=== PATIENT | female | born 1955 | race Hispanic/Latino ===

== ENCOUNTER 2017-04-08 07:56 | Day surgery (SDC) | payer BC ==
[~2017-04-08] VITALS: Ht 154.9 cm; Wt 81.5 kg
[~2017-04-08 07:56] MED LIST: CHOL100046 PO; LOSA50TA37 PO; LOVA40TA2 PO; SODIUM CHLORIDE 0.9% 1000ML 1,000 ML IV ONE
[2017-04-08 08:06] VITALS: BP 143/66
[2017-04-08] MEDS ORDERED: MEPERIDINE-PF 50 MG/ML SYG ONE (09:29)
[2017-04-08] MEDS ORDERED: MIDAZOLAM HCL 1 MG/ML 2ML VIAL ONE (09:29)
== END 2017-04-08 10:50 | disposition home or self-care (01) ==
LOC: DAH 07:56 → ENDO 07:56
PROVIDERS: ATTEND Internal Medicine Gastroenterology
DX: Z12.11 Encounter for screening for malignant neoplasm of colon (principal); K21.9 Gastro-esophageal reflux disease without esophagitis; E78.5 Hyperlipidemia, unspecified; K57.30 Diverticulosis of large intestine without perforation or abscess without bleeding; I10 Essential (primary) hypertension; Z80.0 Family history of malignant neoplasm of digestive organs; Z90.710 Acquired absence of both cervix and uterus; Z98.890 Other specified postprocedural states; Z82.49 Family history of ischemic heart disease and other diseases of the circulatory system; Z83.3 Family history of diabetes mellitus
CPT/HCPCS: 45378; 99156; 99157; A4606; J2175; J2250; J7030

== ENCOUNTER 2021-11-14 06:27 | Day surgery (SDC) | payer OTHER ==
[2021-11-11 15:32] LABS: BASOPHILS % (AUTO) 0.6 % (0.0-5.0); EOSINOPHILS % (AUTO) 2.7 % (0.0-8.0); HEMATOCRIT 40.8 % (36-48); LYMPHOCYTES % (AUTO) 24.8 % (21.0-51.0); MEAN CORPUSCULAR HEMOGLOBIN 30.2 pg (27.0-33.0); MEAN CORPUSCULAR HGB CONC 33.6 g/dL (32.0-36.0); MEAN CORPUSCULAR VOLUME 90.1 fL (79-99); MONOCYTES % (AUTO) 8.5 % (3.0-13.0); NEUTROPHILS % (AUTO) 63.2 % (40.0-77.0); PLATELET COUNT (AUTO) 234 K/uL (130-400); RED BLOOD CELL COUNT(AUTO) 4.53 MIL/uL (4.00-5.50); RED CELL DISTRIBUTION WIDTH 12.9 % (11.0-15.5); WHITE BLOOD COUNT (AUTO) 6.6 K/uL (4.8-10.8)
[2021-11-11 15:43] LABS: INR 0.98 (0.85-1.15); PROTHROMBIN TIME 10.7 SEC (9.6-11.6)
[2021-11-11 15:44] LABS: PARTIAL THROMBOPLASTIN TIME 25.9 SEC (26.3-35.5)
[2021-11-11 15:47] LABS: ALBUMIN 3.7 g/dL (3.5-5.0); CREATININE 0.9 mg/dL (0.5-1.5); TOTAL PROTEIN, SERUM 7.8 g/dL (6.0-8.3)
[2021-11-13 09:58] VITALS: BP 153/71
[2021-11-14] VITALS (18 sets, daily range): BP systolic 124–156; BP diastolic 61–76
[~2021-11-14] VITALS: Ht 152.4 cm; Wt 78.7 kg
[2021-11-14] MEDS: CEFAZOLIN SODIUM 1 GM VIAL IVP SCH ×2 (06:00→07:16)
[~2021-11-14 06:27] MED LIST changes: +HYDR25TA PO; +LACTATED RINGERS 1000ML 1,000 ML IV ONE; -LOSA50TA37 PO; -SODIUM CHLORIDE 0.9% 1000ML 1,000 ML IV ONE; +VALS160T29 PO
[2021-11-14] MEDS ORDERED: DEXAMETHASONE SOD PHOSPHATE 4 MG/ML 1ML VIAL ONE (07:10)
[2021-11-14] MEDS ORDERED: GLYCOPYRROLATE 1 MG/5 ML SYRINGE ONE ×2 (07:11→09:05)
[2021-11-14] MEDS ORDERED: PHENYLEPHRINE HCL 10 MG/ML 1ML VIAL IV ONE (07:11)
[2021-11-14] MEDS ORDERED: ONDANSETRON 4MG INJ ONE ×2 (07:11→08:58)
[2021-11-14] MEDS ORDERED: MIDAZOLAM HCL 1 MG/ML 2ML VIAL ONE (07:11)
[2021-11-14] MEDS ORDERED: NEOSTIGMINE 5MG/5ML SYR IV ONE (07:12)
[2021-11-14] MEDS ORDERED: ROCURONIUM 10MG/1ML SYR 10 MG/ML ML ONE (07:12)
[2021-11-14] MEDS ORDERED: FENTANYL CITRATE PF 50 MCG/1 ML 2ML VIAL ONE (07:12)
[2021-11-14] MEDS ORDERED: PROPOFOL 10 MG/ML 20ML VIAL IV ONE (07:12)
[2021-11-14] MEDS ORDERED: LIDOCAINE PF 100MG/5ML (2%) SYRINGE 5ML ONE (07:13)
[2021-11-14] MEDS ORDERED: LEVO-70 PO (07:40)
[2021-11-14] MEDS ORDERED: BUPIVACAINE/PF 0.25% 30ML VIAL IJ ONE (07:43)
[2021-11-14] MEDS ORDERED: IBUP-2697 PO (08:41)
[2021-11-14] MEDS ORDERED: ACET325C6 PO (08:41)
[2021-11-14] MEDS ORDERED: KETOROLAC 15MG/ML VIAL (15MG/ML) ONE (08:58)
[2021-11-14] MEDS ORDERED: MEPERIDINE-PF 25 MG/ML SYG ONE (08:59)
== END 2021-11-14 10:30 | disposition home or self-care (01) ==
LOC: DAH 06:27
PROVIDERS: ATTEND Surgery
DX: K42.9 Umbilical hernia without obstruction or gangrene (principal); L72.0 Epidermal cyst; L03.90 Cellulitis, unspecified; I10 Essential (primary) hypertension; E78.5 Hyperlipidemia, unspecified; E66.9 Obesity, unspecified; E78.00 Pure hypercholesterolemia, unspecified; Z98.890 Other specified postprocedural states; Z80.0 Family history of malignant neoplasm of digestive organs; Z82.49 Family history of ischemic heart disease and other diseases of the circulatory system; Z83.3 Family history of diabetes mellitus; Z90.710 Acquired absence of both cervix and uterus; Z68.34 Body mass index [BMI] 34.0-34.9, adult; Z79.01 Long term (current) use of anticoagulants
CPT/HCPCS: 80053; 85025; 85610; 85730; 87426; 36415; 11401; 49585; J1100; J7030; J7120; J3010; J0690; J3490 ×3; J2710; J2001; J2250; J2704; J2405 ×2; J1885; J2370; G0168; A4930; A4215; A4223; A4222; A4221; A4663; J2175

== ENCOUNTER → 2022-03-05 | Outpatient (CLI) | payer OTHER ==
[~2022-03-05] MED LIST changes: +ACET325C6 PO; +IBUP-2697 PO; -LACTATED RINGERS 1000ML 1,000 ML IV ONE; +LEVO-70 PO
== END | disposition home or self-care (01) ==
LOC: RAH 14:43
PROVIDERS: ATTEND Family Medicine
DX: M79.672 Pain in left foot (principal)
CPT/HCPCS: 73630

== ENCOUNTER → 2022-08-19 | Outpatient (CLI) | payer OTHER | END | disposition home or self-care (01) | LOC: SHCH 11:09 | PROVIDERS: ATTEND Internal Medicine Cardiovascular Disease | DX: R00.2 Palpitations (principal) | CPT/HCPCS: 93306 ==

== ENCOUNTER → 2022-08-25 | Outpatient (CLI) | payer OTHER | END | disposition home or self-care (01) | LOC: RAH 08:22 | PROVIDERS: ATTEND Internal Medicine Cardiovascular Disease | DX: Z13.6 Encounter for screening for cardiovascular disorders (principal) | CPT/HCPCS: 75571 ==